=== PATIENT | female | born 1975 | race Caucasian/White ===

== ENCOUNTER 2018-10-22 08:19 | Day surgery (SDC) | payer OTHER ==
[2018-10-20 14:13] VITALS: BMI 24.5
[2018-10-22 09:18] LABS: BASO % 0.7 % (0-2.0); EOS % 3.6 % (0-4.5); HEMOGLOBIN 12.7 GM/dL (10.7-15.3); LYMPH % 28.3 % (8-40); MCH 28.6 pg (25.7-33.7); MCHC 32.5 g/dl (32.0-36.0); MEAN CELL VOLUME 87.8 fl (80-96); MEAN PLT VOLUME 7.8 fl (7.5-11.1); MONO % 8.3 % (3.8-10.2); NEUT % 59.1 % (42.8-82.8); PLATELET COUNT 242 K/MM3 (134-434); RBC 4.44 M/mm3 (3.60-5.2); RDW 13.3 % (11.6-15.6)
[2018-10-22] MEDS ORDERED: oxyCODONE HCL 5 MG TABLET PO PRN (10:47)
[2018-10-22] MEDS ORDERED: IBUPROFEN 400 MG TABLET (FP) PO PRN (10:47)
[2018-10-22] MEDS ORDERED: ACETAMINOPHEN 325 MG TABLET (FP) PO PRN (10:47)
--- NOTE | 2018-10-22 10:47 | HP ---
Admitting History and Physical - Admission History of Present Illness: 42 yo with hx/o GARDENIA favor neoplasia for hysteroscopy, dilation and curettage s/p Colposcopy 10/20, biopsies pending 2016 - GARDENIA, negative ECC and endometrial biopsy History Source: Patient Limitations to Obtaining History: No Limitations - Past Medical History Cardiovascular: No: HTN Pulmonary: No: Asthma Gastrointestinal: No: GERD ...LMP: 10/15/18 ...: No Heme/Onc: No: Anemia Psych: Yes: Anxiety - Past Surgical History Past Surgical History: Yes: (x2) Additional Past Surgical History: Heel laceration repair - Smoking History Smoking history: Never smoked Have you smoked in the past 12 months: No - Alcohol/Substance Use Hx Alcohol Use: Yes (occ) History of Substance Use: reports: None Home Medications - Allergies Allergies/Adverse Reactions: Allergies Allergy/AdvReac Type Severity Reaction Status Date / Time No Known Allergies Allergy Verified 10/22/18 09:07 - Home Medications Home Medications: Ambulatory Orders Acetaminophen [Tylenol] 1,000 mg PO PRN PRN 10/20/18 Family Disease History - Family Disease History Family History: Denies Review of Systems - Review of Systems Constitutional: reports: No Symptoms Neck: reports: No Symptoms Cardiovascular: reports: No Symptoms Respiratory: reports: No Symptoms Gastrointestinal: reports: No Symptoms Genitourinary: reports: No Symptoms Hematology/Lymphatic: reports: No Symptoms Psychiatric: reports: No Symptoms Physical Examination Vital Signs: Vital Signs Temperature 98.5 F 10/22/18 09:01 Pulse Rate 69 10/22/18 09:01 Respiratory Rate 18 10/22/18 09:01 Blood Pressure 112/67 10/22/18 09:01 O2 Sat by Pulse Oximetry (%) 100 10/22/18 09:01 Constitutional: Yes: Well Nourished, No Distress, Calm Cardiovascular: Yes: Regular Rate and Rhythm Respiratory: Yes: Regular, CTA Bilaterally Gastrointestinal: Yes: Normal Bowel Sounds, Soft Musculoskeletal: Yes: WNL Extremities: Yes: WNL Edema: No Integumentary: Yes: WNL Neurological: Yes: WNL ...Motor Strength: WNL Psychiatric: Yes: Alert, Oriented Labs: CBC, BMP 10/22/18 08:42 Assessment/Plan 42 yo hx/o GARDENIA, favor neoplasm for evaluation 1. Consetns reviewed and signed 2. Routine labs reviewed 3. SCDs for DVT prophylaxis 4 Will proceed to OR
[2018-10-22] MEDS ORDERED: ONDANSETRON 4 MG/2 ML VIAL IVPUSH PRN (10:48)
[2018-10-22] MEDS ORDERED: MIDAZOLAM HCL 2 MG/2 ML SINGLE DOSE VIAL ONE ×2 (11:51)
[2018-10-22] MEDS ORDERED: PROPOFOL 20 ML ONE (11:51)
[2018-10-22] MEDS ORDERED: ceFAZolin SODIUM 1 GM VIAL IVPB ONE (12:00)
[2018-10-22] MEDS ORDERED: LIDOCAINE HCL/PF 2% SDV 5ML VIAL ONE (12:02)
[2018-10-22] MEDS ORDERED: DEXAMETHASONE SOD PHOSPHATE 4 MG/1 ML VIAL ONE (12:02)
[2018-10-22] MEDS ORDERED: ceFAZolin SODIUM 1 GM VIAL ONE (12:02)
--- NOTE | 2018-10-22 13:12 | OP ---
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
[2018-10-22 14:27] VITALS: TEMP 98.3
[2018-10-22 15:25] VITALS: BP 101/62; PULSE 65
--- NOTE | 2018-10-22 16:10 | OP ---
DATE OF OPERATION: 10/22/2018 ATTENDING PHYSICIAN: Marie Sutherland MD PREOPERATIVE DIAGNOSIS: Atypical glandular cells favoring neoplasia. POSTOPERATIVE DIAGNOSIS: Atypical glandular cells favoring neoplasia. SURGEON: Marie Sutherland MD ANESTHESIA: General. ANESTHESIOLOGIST: Abbey Scott MD ESTIMATED BLOOD LOSS: 10. URINE: Not recorded. INTRAVENOUS FLUID GIVEN: 900. INDICATIONS: Patient is a 42-year-old 3, para 3 with history of atypical glandular cells favoring neoplasia status post colposcopy in the office which did not reveal any significant abnormalities. Given history of atypical glandular cells in 2017 with negative endocervical and endometrial biopsies in the office, we counseled regarding surgical intervention with hysteroscopy and hysteroscopic guided biopsies. She was counseled regarding risks, benefits, alternatives, and complications of procedure including infection, bleeding, damage to surrounding organs such as bowel or bladder, uterine perforation. She expressed understanding and was brought to the operating room. DESCRIPTION OF PROCEDURE: When anesthesia was found to be adequate, patient was prepped and draped in no draped in normal sterile fashion and placed in the dorsal lithotomy position in Aravind stirrups. A weighted speculum was placed in the patient's vagina. Anterior vagina was retracted using retractor. Anterior lip of the cervix was grasped using an Allis clamp. Cervix was gently dilated to a size 17 Hegar dilator. The Symphion hysteroscope was placed in the endometrial cavity with visualization of the endometrial bilateral ostia. Mildly erythemic tissue was noted and the anterior part of the uterus approximately 10 to 11 o'clock. Directed biopsies were performed, and complete curetting using the Symphion was performed. The Symphion was removed. Endocervical curetting was performed, and gentle sharp curetting was again performed. All three specimens were sent to Pathology. The patient tolerated the procedure well. Estimated blood loss was 10 mL. Patient was awoken from anesthesia, brought to recovery room in stable condition. MARIE SUTHERLAND M.D. [id number]
--- NOTE | 2018-10-27 14:05 | PATH ---
Surgical Pathology Report Patient Name: ARMANI NORTON [facility]. Rec. #: [id number] /Age/Gender: 1975 (Age: 42) / F Account: [id number] Location: [facility] SURGICAL Taken: 10/22/2018 Received: 10/22/2018 Reported: 10/27/2018 Physicians: Mercedes Sutherland Specimen(s) Received A: ENDOCERVICAL CURETTINGS B: ENDOMETRIAL CURETTINGS C: SHARP ENDOMETRIAL CURETTINGS Clinical History Previous surgery: Hysteroscopy-polypectomy Final Diagnosis A. ENDOCERVIX, CURETTAGE: BENIGN ENDOCERVICAL GLANDULAR TISSUE AND SQUAMOUS EPITHELIUM. B. ENDOMETRIUM, CURETTAGE: FRAGMENTS OF POLYPOID AND NON-POLYPOID PROLIFERATIVE ENDOMETRIUM SHOWING CHRONIC ENDOMETRITIS. (SEE NOTE) C. ENDOMETRIUM, SHARP CURETTAGE: FRAGMENTS OF POLYPOID AND NON-POLYPOID PROLIFERATIVE ENDOMETRIUM SHOWING CHRONIC ENDOMETRITIS. (SEE NOTE) Note: The endometrium shows reactive stromal cell changes with scattered plasma cells, present singly and in small clusters, highlighted by CD138 immunostains (performed at [place], [place]; [id number]). These findings support the diagnosis. Electronically Signed Inge Lazaro M.D. Gross Description A. Received in formalin labeled "endocervical curettings," is a 1.4 x 1.1 x 0.3 cm aggregate of cameron-red soft tissue fragments. The formalin is filtered and the specimen is entirely submitted in one cassette. B. Received in formalin labeled "endometrial curettings," is a 1.5 x 1.4 x 0.2 cm aggregate of cameron pink soft tissue fragments. The formalin is filtered and the specimen is entirely submitted in one cassette. C. Received in formalin labeled "sharp endometrial curettings," is a 1.8 x 1.4 x 0.2 cm aggregate of cameron red soft tissue fragments. The formalin is filtered and the specimen is entirely submitted in one cassette. 10/22/201810/22/2018
== END 2018-10-22 14:50 | disposition home or self-care (01) ==
LOC: JASU-SURG 08:19 → EDBD 11:00 → JASU-SURG 14:50
PROVIDERS: ATTEND Obstetrics & Gynecology
PROC: 0UDB7ZX Extraction of Endometrium, Via Natural or Artificial Opening, Diagnostic (ICD-10-PCS; principal; 2018-10-22 10:00)
PROC: 0UJD8ZZ Inspection of Uterus and Cervix, Via Natural or Artificial Opening Endoscopic (ICD-10-PCS; 2018-10-22 10:00)
DX: N80.0 Endometriosis of uterus (principal)
CPT/HCPCS: 36415; 84703; 85025; 86850; 86900; 86901; 88305-TC; 94760